=== PATIENT | female | born 1975 | race Caucasian/White ===

== ENCOUNTER 2017-12-06 20:04 | Emergency (ER) | payer OTHER ==
[~2017-12-06] VITALS: Ht 170.2 cm; Wt 54.4 kg
[2017-12-06] MEDS ORDERED: GABAPENTIN 100100 MG PO (20:59)
[2017-12-06] MEDS ORDERED: MEDROLDOSEPACK PO (20:59)
[2017-12-06 22:14] VITALS: BP 138/72
== END 2017-12-06 22:10 | disposition home or self-care (01) ==
LOC: M.ERS 20:04
DX: R68.84 Jaw pain (principal)